=== PATIENT | male | born 1995 | race Caucasian/White ===

== ENCOUNTER → 2021-06-24 | Outpatient (CLI) | payer OTHER ==
[~2021-06-24] MED LIST: HYDACE5 PO
== END | disposition home or self-care (01) ==
LOC: LAB SHORT 09:00
DX: L08.9 Local infection of the skin and subcutaneous tissue, unspecified (principal)
CPT/HCPCS: 87070; 87205

== ENCOUNTER 2023-08-05 00:46 | Emergency (ER) | payer OTHER ==
[~2023-08-05] VITALS: Ht 190.5 cm; Wt 97.5 kg
[2023-08-05 00:51] VITALS: BP 127/94
[2023-08-05] MEDS ORDERED: SULTRIDS PO (04:28)
== END 2023-08-05 04:37 | disposition home or self-care (01) ==
LOC: ER 00:46
DX: S61.210A Laceration without foreign body of right index finger without damage to nail, initial encounter (principal); Z23 Encounter for immunization; W25.XXXA Contact with sharp glass, initial encounter
CPT/HCPCS: 12001; 90471; 90715; 99283-25; A9270